=== PATIENT | male | born 1940 | race Caucasian/White ===

== ENCOUNTER 2021-05-29 09:15 | Day surgery (SDC) | payer MEDICARE, OTHER ==
[2021-05-29] MEDS: Polymyxin B/Trimethoprim 10 ML Bottle EYELF SCH ×4 (10:08→11:40)
[2021-05-29] MEDS: Brimonidine 0.2% Ophth Soln 5 ML Bottle EYELF SCH ×4 (10:12→11:40)
[2021-05-29] MEDS: Phenylephrine 2.5% Ophth Soln 2 ML Bot EYELF SCH ×6 (10:15→11:16)
[2021-05-29] MEDS: Tropicamide 1% Ophth Soln 15 ML Bottle EYELF SCH ×4 (10:19→10:48)
--- NOTE | 2021-05-29 10:37 | PCM.PREANE ---
Preanesthetic Assessment - Procedure Proposed Procedure: cataract left - Anesthesia/Transfusion/Family Hx Anesthesia History: Prior Anesthesia Without Reaction Family History of Anesthesia Reaction: No Transfusion History: No Prior Transfusion(s) - Review of Systems General: No Symptoms Pulmonary: Other (phlegm in throat today) Cardiovascular: No Symptoms Gastrointestinal: No Symptoms Neurological: No Symptoms Other: Reports: None - Physical Assessment NPO Status Date: 05/28/21 NPO Status Time: 22:30 Vital Signs: Last Vital Signs Temp 98.1 F 05/29/21 09:40 Pulse Resp 16 05/29/21 09:40 BP 130/60 05/29/21 09:56 Pulse Ox 99 05/29/21 09:40 161/68 52 99% 16 98.0 Height: 6 ft Weight: 79.379 kg ASA Class: 2 Mental Status: Alert & Oriented x3 Airway Class: Mallampati = 1 Dentition: Reports: Dentures (top plate) Thyro-Mental Finger Breadths: 3 Mouth Opening Finger Breadths: 3 ROM/Head Extension: Full Lungs: Clear to Auscultation, Normal Respiratory Effort Cardiovascular: Regular Rate, Regular Rhythm - Allergies Allergies/Adverse Reactions: Allergies Allergy/AdvReac Type Severity Reaction Status Date / Time No Known Allergies Allergy Verified 05/29/21 09:55 - Blood Blood Available: No - Acknowledgements Anesthesia Type Planned: MAC Pt an Appropriate Candidate for the Planned Anesthesia: Yes Alternatives and Risks of Anesthesia Discussed w Pt/Guardian: Yes Pt/Guardian Understands and Agrees with Anesthesia Plan: Yes PreAnesthesia Questionnaire Cardiovascular History: Reports: Hypertension Respiratory History: Reports: Other (See Below) (former smoker) Gastrointestinal History: Reports: GERD Musculoskeletal History: Reports: Arthritis Oncologic (Cancer) History: Reports: None - Past Surgical History Musculoskeletal Surgical History: Reports: Other (See Below) (right hand) - SUBSTANCE USE Tobacco Use Status *Q: Former Tobacco User Tobacco Use Within Last Twelve Months: No Second Hand Smoke Exposure: No Days Per Week of Alcohol Use: 1 Number of Drinks Per Day: 4 Total Drinks Per Week: 4 Recreational Drug Use History: No - HOME MEDS Home Medications: Home Meds Aspirin 81 mg PO DAILY 05/28/21 [History] Carboxymethylcellulose Sodium [Artificial Tears] 15 ml OP DAILY 05/28/21 [History] Cyanocobalamin (Vitamin B12) [Vitamin B12] 1,000 mcg PO DAILY 05/28/21 [History] Enalapril [Vasotec] 5 mg PO DAILY 05/28/21 [History] Folic Acid 1 mg PO DAILY 05/28/21 [History] Metoprolol Succinate 25 mg PO DAILY 05/28/21 [History] Simvastatin [Zocor] 10 mg PO BEDTIME 05/28/21 [History] amLODIPine [Norvasc] 5 mg PO DAILY 05/28/21 [History] - CURRENT (IN HOUSE) MEDS Current Meds: Current Medications Brimonidine Tartrate (Brimonidine 0.2% Ophth Soln 5 Ml Bottle) 0 ml EYELF ASDIRECTED SUSANA Stop: 05/29/21 23:00 Last Admin: 05/29/21 10:12 Dose: 1 drop Documented by: Cefuroxime Sodium (Cefuroxime 10 Mg/Ml Syringe) 0 mg EYELF ASDIRECTED SUSANA Stop: 05/29/21 23:00 Lidocaine HCl (Lidocaine 1% Pf 2 Ml Sdv) 0 ml INJECT ASDIRECTED SUSANA Stop: 05/29/21 23:00 Phenylephrine HCl (Phenylephrine 2.5% Ophth Soln 2 Ml Bot) 0 ml EYELF ASDIRECTED SUSANA Stop: 05/29/21 23:00 Last Admin: 05/29/21 10:23 Dose: 1 drop Documented by: Pilocarpine HCl (Pilocarpine 4% Ophth Soln 15 Ml Bot) 0 ml EYELF ASDIRECTED SUSANA Stop: 05/29/21 23:00 Polymyxin/Trimethoprim Sulfate (Polymyxin B/Trimethoprim 10 Ml Bottle) 0 ml EYELF ASDIRECTED SUSANA Stop: 05/29/21 23:00 Last Admin: 05/29/21 10:08 Dose: 1 drop Documented by: Tetracaine HCl (Tetracaine Hcl/Pf 0.5% 4 Ml Bottle) 0 ml EYEBOTH ASDIRECTED SUSANA Stop: 05/29/21 23:00 Tropicamide (Tropicamide 1% Ophth Soln 15 Ml Bottle) 0 ml EYELF ASDIRECTED SUSANA Stop: 05/29/21 23:00 Last Admin: 05/29/21 10:28 Dose: 1 drop Documented by:
[2021-05-29] MEDS: Tetracaine HCl/PF 0.5% 4 ML Bottle EYEBOTH SCH ×5 (10:59→11:29)
[2021-05-29] MEDS: Pilocarpine 4% Ophth Soln 15 ML Bot EYELF SCH ×2 (11:08→11:40)
[2021-05-29] MEDS: Cefuroxime 10 MG/ML SYRINGE EYELF SCH ×2 (11:08→11:39)
[2021-05-29] MEDS: Lidocaine 1% PF 2 ML SDV INJECT SCH ×2 (11:08→11:30)
--- NOTE | 2021-05-29 11:42 | PCM48HPAN ---
Post Anesthesia Note - EVALUATION WITHIN 48HRS OF ANESTHETIC Vital Signs in Normal Range: Yes Patient Participated in Evaluation: Yes Respiratory Function Stable: Yes Airway Patent: Yes Cardiovascular Function Stable: Yes Hydration Status Stable: Yes Pain Control Satisfactory: Yes Nausea and Vomiting Control Satisfactory: Yes Mental Status Recovered: Yes Vital Signs: Last Vital Signs Temp 36.7 C 05/29/21 09:40 Pulse Resp 16 05/29/21 09:40 BP 130/60 05/29/21 09:56 Pulse Ox 99 05/29/21 09:40
== END 2021-05-29 11:58 | disposition home or self-care (01) ==
LOC: JD.SDS 09:15
PROVIDERS: ATTEND Ophthalmology
DX: H25.812 Combined forms of age-related cataract, left eye (principal); H16.223 Keratoconjunctivitis sicca, not specified as Sjogren's, bilateral; H02.834 Dermatochalasis of left upper eyelid; H02.831 Dermatochalasis of right upper eyelid; I10 Essential (primary) hypertension; K21.9 Gastro-esophageal reflux disease without esophagitis; Z87.891 Personal history of nicotine dependence; Z79.899 Other long term (current) drug therapy; Z96.1 Presence of intraocular lens
CPT/HCPCS: 66984; J0697; V2632

== ENCOUNTER 2024-04-05 10:22 | Emergency (ER) | payer MEDICARE, OTHER ==
[2024-04-05] MEDS: Diphtheria,Pertussis(Acell),Tetanus Vaccine 0.5 ML Syringe IM ONE (11:26)
== END 2024-04-05 11:31 | disposition home or self-care (01) ==
LOC: JD.ED 10:22
DX: S61.211A Laceration without foreign body of left index finger without damage to nail, initial encounter (principal); I10 Essential (primary) hypertension; E78.00 Pure hypercholesterolemia, unspecified; Z23 Encounter for immunization; Z79.899 Other long term (current) drug therapy; Z79.82 Long term (current) use of aspirin; W26.8XXA Contact with other sharp object(s), not elsewhere classified, initial encounter
CPT/HCPCS: 90471; 90715; 99282-25; 99283